=== PATIENT | male | born 1970 | race Caucasian/White ===

== ENCOUNTER → 2021-04-19 13:56 | Outpatient (BNVA) | payer OTHER, SELFPAY | PROVIDERS: Family Provider Nurse Practitioner Family; Visit Provider Nurse Practitioner | DX: I10 Essential (primary) hypertension (principal); E55.9 Vitamin D deficiency, unspecified; E66.9 Obesity, unspecified; K06.9 Disorder of gingiva and edentulous alveolar ridge, unspecified | CPT/HCPCS: 80053; 80061; 81000; 82306; 82607; 84443; 85025 ==

== ENCOUNTER → 2021-04-20 11:04 | Outpatient (BNVA) | payer OTHER, SELFPAY | PROVIDERS: Family Provider Nurse Practitioner Family; Visit Provider Nurse Practitioner Family | DX: Z20.822 Contact with and (suspected) exposure to COVID-19 (principal) | CPT/HCPCS: 87635 ==

== ENCOUNTER → 2021-06-13 15:16 | Outpatient (BNVA) | payer OTHER, SELFPAY | PROVIDERS: Family Provider Nurse Practitioner Family; PCP Nurse Practitioner; Visit Provider Nurse Practitioner | DX: R73.9 Hyperglycemia, unspecified (principal); R74.8 Abnormal levels of other serum enzymes; Z11.59 Encounter for screening for other viral diseases | CPT/HCPCS: 83036; 86705; 86706; 86709; 86803; 87340 ==

== ENCOUNTER → 2021-09-23 10:29 | Outpatient (BNVA) | payer OTHER, SELFPAY | PROVIDERS: Family Provider Nurse Practitioner Family; PCP Nurse Practitioner; Visit Provider Nurse Practitioner | DX: I10 Essential (primary) hypertension (principal); M25.50 Pain in unspecified joint; E11.65 Type 2 diabetes mellitus with hyperglycemia | CPT/HCPCS: 80053; 80061; 83036; 84443; 85025; 85651; 86140; 86431 ==

== ENCOUNTER → 2021-10-05 13:16 | Outpatient (BNVA) | payer OTHER, SELFPAY | PROVIDERS: Family Provider Nurse Practitioner Family; PCP Nurse Practitioner; Visit Provider Nurse Practitioner | DX: M79.18 Myalgia, other site (principal); M25.50 Pain in unspecified joint; E11.65 Type 2 diabetes mellitus with hyperglycemia; I10 Essential (primary) hypertension; K06.9 Disorder of gingiva and edentulous alveolar ridge, unspecified; E78.2 Mixed hyperlipidemia | CPT/HCPCS: 72100 ==

== ENCOUNTER → 2022-07-24 11:46 | Outpatient (BNVA) | payer OTHER, SELFPAY | PROVIDERS: Family Provider Nurse Practitioner Family; PCP Nurse Practitioner; Visit Provider Nurse Practitioner | DX: E78.2 Mixed hyperlipidemia (principal); E11.65 Type 2 diabetes mellitus with hyperglycemia; I10 Essential (primary) hypertension | CPT/HCPCS: 80053; 80061; 82043; 83036 ==

== ENCOUNTER → 2022-12-14 14:34 | Outpatient (BNVA) | payer OTHER, SELFPAY | PROVIDERS: Family Provider Nurse Practitioner Family; PCP Nurse Practitioner; Visit Provider Nurse Practitioner | DX: E11.65 Type 2 diabetes mellitus with hyperglycemia (principal); K06.9 Disorder of gingiva and edentulous alveolar ridge, unspecified | CPT/HCPCS: 80053; 80061; 83036; 85025 ==

== ENCOUNTER → 2023-07-06 11:11 | Outpatient (BNVA) | payer SELFPAY | PROVIDERS: Family Provider Nurse Practitioner Family; PCP Nurse Practitioner; Visit Provider Nurse Practitioner | DX: E11.65 Type 2 diabetes mellitus with hyperglycemia; E55.9 Vitamin D deficiency, unspecified | CPT/HCPCS: 80053; 80061; 82306; 83036 ==

== ENCOUNTER → 2024-09-08 16:51 | Outpatient (BNVA) | payer SELFPAY | PROVIDERS: Family Provider Nurse Practitioner Family; PCP Nurse Practitioner; Visit Provider Nurse Practitioner | DX: I10 Essential (primary) hypertension (principal); E11.65 Type 2 diabetes mellitus with hyperglycemia | CPT/HCPCS: 80053; 80061; 83036 ==

== ENCOUNTER → 2025-01-29 09:24 | Outpatient (BNVA) | payer SELFPAY | PROVIDERS: Family Provider Nurse Practitioner Family; PCP Nurse Practitioner; Visit Provider Nurse Practitioner | DX: E11.65 Type 2 diabetes mellitus with hyperglycemia (principal) | CPT/HCPCS: 80053; 80061; 83036 ==

== ENCOUNTER → 2025-04-15 14:41 | Outpatient (BNVA) | payer MEDICAID, SELFPAY | PROVIDERS: Family Provider Nurse Practitioner Family; PCP Nurse Practitioner; Visit Provider Nurse Practitioner | DX: E11.9 Type 2 diabetes mellitus without complications (principal); Z12.5 Encounter for screening for malignant neoplasm of prostate | CPT/HCPCS: 80053; 80061; 83036; G0103 ==

== ENCOUNTER 2025-04-27 09:00 | Outpatient (CLI) | payer MEDICAID, SELFPAY ==
--- NOTE | 2025-04-27 09:07 | XRR_ITS ---
PROCEDURE INFORMATION: Exam: XR Left Hip Exam date and time: 04/27/2025 9:16 AM Age: 54 years old Clinical indication: Hip pain; Left hip; Additional info: M25.552 - pain in left hip TECHNIQUE: Imaging protocol: Radiologic exam of the left hip. Views: 2 or 3 views hip with pelvis when performed. COMPARISON: CR XR lumbar spine 2-3V* [id number] 10/05/2021 1:14 PM FINDINGS: Bones/joints: Unremarkable. No acute fracture. Soft tissues: Unremarkable. XR/XR hip LT 2-3V wo/w pel* [id number] IMPRESSION: No acute findings.
--- NOTE | 2025-04-27 09:12 | XRR_ITS ---
PROCEDURE INFORMATION: Exam: XR Left Knee Exam date and time: 04/27/2025 9:16 AM Age: 54 years old Clinical indication: Pain; Knee; Left; Additional info: M25.50 - pain in unspecified joint TECHNIQUE: Imaging protocol: Radiologic exam of the left knee. Views: 3 views. COMPARISON: CR XR ankle LT min 3V* [id number] 04/27/2025 9:16 AM FINDINGS: Bones/joints: No fractures. Superior patellar bone spur. Soft tissues: Normal. XR/XR knee LT 3V* [id number] IMPRESSION: No acute findings.
--- NOTE | 2025-04-27 09:12 | XRR_ITS ---
PROCEDURE INFORMATION: Exam: XR Left Ankle Exam date and time: 04/27/2025 9:16 AM Age: 54 years old Clinical indication: Swelling or effusion of joint; Ankle; Left; Pain in the heel along with swelling posteriorly. ; Additional info: M25.50 - pain in unspecified joint TECHNIQUE: Imaging protocol: Radiologic exam of the left ankle. Views: 3 or more views. COMPARISON: CR XR knee LT 3V* [id number] 04/27/2025 9:16 AM FINDINGS: Bones/joints: Very large dorsal calcaneal bone spur with adjacent soft tissue swelling and punctate calcifications. Also large plantar calcaneal bone spur. Soft tissues: See Bones/joints finding. XR/XR ankle LT min 3V* [id number] IMPRESSION: No acute findings. Large calcaneal bone spurs are enthesopathy. Distal Achilles tendon pathology not excluded.
== END 2025-04-27 09:01 | disposition home or self-care (01) ==
LOC: RAD 09:02
PROVIDERS: Family Provider Nurse Practitioner Family; PCP Nurse Practitioner; Visit Provider Nurse Practitioner
DX: M76.892 Other specified enthesopathies of left lower limb, excluding foot (principal); M25.552 Pain in left hip; M77.32 Calcaneal spur, left foot; R93.6 Abnormal findings on diagnostic imaging of limbs
CPT/HCPCS: 73502; 73562; 73610

== ENCOUNTER → 2025-05-27 09:15 | Outpatient (BNVA) | payer MEDICAID, SELFPAY | PROVIDERS: Family Provider Nurse Practitioner Family; PCP Nurse Practitioner; Visit Provider Specialist | DX: M53.3 Sacrococcygeal disorders, not elsewhere classified (principal); M79.18 Myalgia, other site; M54.42 Lumbago with sciatica, left side | CPT/HCPCS: 73502 ==

== ENCOUNTER 2025-06-15 08:34 | Outpatient (CLI) | payer MEDICAID, SELFPAY ==
--- NOTE | 2025-06-15 08:45 | MR_ITS ---
WS: [id number] MRI LUMBAR SPINE NONCONTRAST HISTORY: M51.16 - Intervertebral disc disorders with radiculopathy... COMPARISON: Radiograph 10/05/2021 TECHNIQUE: Sagittal and axial multisequence imaging is submitted. Normal lumbar alignment with no compression fractures or marrow edema. Disc spaces are desiccated throughout the lumbar spine. There is increased T2 signal in the L4-5 and L5-S1 disc. There is also marrow edema in the L4 and L5 vertebral bodies. Marrow edema extends into the LEFT L4 pedicle. Conus terminates normally at L1-2 disc level. L1-L2: Diffuse annular disc bulging, osteophytic ridging and facet arthritis. Fluid in the RIGHT facet joint. Mild disc encroachment upon the ventral thecal sac and subarticular recesses. Mild central, subarticular recess and foraminal stenosis. L2-L3: Mild annular disc bulging, ligamentum flavum and facet arthritis. Fluid in the facet joints. Small disc osteophyte complexes in the foramina. Mild central, bilateral subarticular recess and foraminal stenosis. Mild encroachment upon the L2 and L3 nerve roots. L3-L4: Mild annular disc bulging with osteophytic ridging. LEFT foraminal disc osteophyte complex. Fluid in the facet joints with ligamentum flavum and facet arthritis. There is significant disc osteophyte contact on the traversing L4 nerve roots. Additional mild contact on the LEFT exiting L4 nerve root. Moderate to severe central, subarticular recess and foraminal stenosis. L4-L5: Marked annular disc bulging with a central disc protrusion. Bilobed central and paracentral disc protrusions. Bilateral disc osteophyte complexes in the foramina. Ligamentum flavum and facet arthritis. Fluid in the facet joints. Moderate to severe central, bilateral subarticular recess and foraminal stenosis. There is significant contact on the L4 and L5 nerve roots. LEFT facet joint cyst measures 10 mm. L5-S1: Annular disc bulging with a small central disc protrusion and osteophytes encroaching upon the subarticular recesses. Bilateral facet joint arthropathy. No significant central or subarticular recess stenosis. Mild LEFT foraminal stenosis due to disc osteophyte disease. Paravertebral soft tissues are negative. MR/MR lumbar spine wo con* [id number] IMPRESSION: 1. L4-5: Moderate to severe central, subarticular recess and foraminal stenosi s. Stenosis due to combination of disc protrusions, osteophytosis and facet art hropathy. Central and paracentral disc protrusions contributing to the stenosis .. There is contact by disc and osteophyte disease on the L4 and L5 nerve roots . 2. L3-4: Moderate to severe central, subarticular recess and foraminal stenosi s due to disc osteophyte disease. Most significant contact on the traversing L4 nerve roots. 3. Mild LEFT foraminal stenosis at L5-S1. 4. L1-2 and L2-3: Mild central, subarticular recess and foraminal stenosis. 5. There is fluid in the L4-5 and L5-S1 disc spaces and marrow edema. This may be reactive change from instability and acute arthropathy. These changes also can be noted with changes of discitis and osteomyelitis.
== END 2025-06-15 08:35 | disposition home or self-care (01) ==
LOC: RAD 08:35
PROVIDERS: PCP Nurse Practitioner; Visit Provider Anesthesiology Pain Medicine
DX: M51.16 Intervertebral disc disorders with radiculopathy, lumbar region (principal); M48.061 Spinal stenosis, lumbar region without neurogenic claudication; M25.78 Osteophyte, vertebrae; M47.26 Other spondylosis with radiculopathy, lumbar region
CPT/HCPCS: 72148

== ENCOUNTER → 2025-10-08 10:33 | Outpatient (BNVA) | payer MEDICAID, SELFPAY | PROVIDERS: PCP Nurse Practitioner; Visit Provider Nurse Practitioner | DX: I10 Essential (primary) hypertension (principal); E11.65 Type 2 diabetes mellitus with hyperglycemia; E55.9 Vitamin D deficiency, unspecified | CPT/HCPCS: 80053; 80061; 81000; 82043; 82306; 83036; 84443; 85025 ==

== ENCOUNTER → 2025-10-19 09:26 | Outpatient (BNVA) | payer MEDICAID, SELFPAY | PROVIDERS: PCP Nurse Practitioner; Visit Provider Internal Medicine Cardiovascular Disease | DX: I21.29 ST elevation (STEMI) myocardial infarction involving other sites (principal) | CPT/HCPCS: 93005 ==